=== PATIENT | male | born 2000 | race Caucasian/White ===

== ENCOUNTER 2021-11-14 04:23 | Emergency (ER) | payer BC ==
[2021-11-14] MEDS ORDERED: Lidocaine 1% w/Epinephrine 1:100K 20 ML VIAL ONE (04:38)
[2021-11-14] MEDS ORDERED: Triple Antibiotic Oint 1 GM Packet ONE (05:00)
== END 2021-11-14 05:14 | disposition home or self-care (01) ==
LOC: CSHERS 04:23
DX: S61.512A Laceration without foreign body of left wrist, initial encounter (principal); S01.81XA Laceration without foreign body of other part of head, initial encounter; F17.290 Nicotine dependence, other tobacco product, uncomplicated; W45.8XXA Other foreign body or object entering through skin, initial encounter
CPT/HCPCS: 12002; 12011